=== PATIENT | male | born 1950 | race Caucasian/White ===

== ENCOUNTER 2017-03-14 15:11 | Emergency (ER) | payer MEDICARE, OTHER ==
[2017-03-14] MEDS ORDERED: KEFZOL 1 GM/50 ML PREMIX** 50 ML IV ONE ×2 (15:42→15:51)
--- NOTE | 2017-03-14 15:48 | ERPHSYRPT ---
- History of Present Illness Time Seen by Provider: 03/14/17 15:15 Source: patient Patient Subjective Stated Complaint: PT REPORTS WAS HANGING A BOARD WHEN IT FELL -REPORTS LAC TO RIGHT EAR-DENIES LOC-DENIES NUMBNESS OR TINLGING Triage Nursing Assessment: PT ALERT-ANSWERING QUESTIONS CORRECTLY-PUPILS RESPONSIVE-LAC NOTED TO RIGHT EAR WITH BLEEDING CONTROLLED NOTCHER Physician History: PATIENT WITH HISTORY OF TYPE 2 DIABETES, CORONARY ARTERY DISEASE STATES WHILE HANGING WALL BOARD, A 2X4 WOODED BOARD FELL STRUCK HIS RIGHT EAR SUSTAINING A THROUGH AND THROUGH LACERATIONS OF THE RIGHT EAR. DENIES ASSOCIATED HEAD, NECK OR BACK INJURY. Severity: mild ENT Location: ear (R) Prearrival Treatment: no prearrival treatment Modifying Factors: Improves With: nothing Associated Symptoms: ear pain (R) Allergies/Adverse Reactions: No Known Drug Allergies Allergy (Verified 03/14/17 15:22) Home Medications: Aspirin 81 gm Chew [Baby Aspirin 81 mg Chew] 81 mg PO DAILY 03/14/17 [ History] Carvedilol 3.125 mg [Coreg 3.125 MG] 3.125 mg PO DAILY 03/14/17 [History] Duloxetine HCl [Cymbalta] 60 mg PO DAILY 03/14/17 [History] Escitalopram Oxalate [Lexapro] 20 mg PO DAILY 03/14/17 [History] Esomeprazole Magnesium [Nexium] 40 mg PO DAILY 03/14/17 [History] Ezetimibe 10 mg [Zetia 10 MG] 10 mg PO HS 03/14/17 [History] Fe Fumarate/Vit C/B12-If/FA [Ferocon Capsule] 1 each PO BID 03/14/17 [History] Fenofibrate 40 mg PO DAILY 03/14/17 [History] Insulin Aspart [NovoLOG Insulin] 0 unit SQ UD 03/14/17 [History] Insulin Glargine [Lantus Insulin] 0 unit SQ UD 03/14/17 [History] Tamsulosin HCl 0.4 mg [Flomax 0.4 MG] 0.4 mg PO DAILY 03/14/17 [History] Thyroid,Pork [Gantt Thyroid] 240 mg PO DAILY 03/14/17 [History] Hx Tetanus, Diphtheria Vaccination/Date Given: Yes (2012) Hx Influenza Vaccination/Date Given: Yes Hx Pneumococcal Vaccination/Date Given: Yes Immunizations Up to Date: Yes - Review of Systems Constitutional: No Fever, No Chills Eyes: No Symptoms Ears, Nose, & Throat: Ear Pain, Other (LACERATION,) Respiratory: No Cough, No Dyspnea Cardiac: No Symptoms, No Chest Pain, No Edema, No Syncope Abdominal/Gastrointestinal: No Abdominal Pain, No Nausea, No Vomiting, No Diarrhea Genitourinary Symptoms: No Dysuria Musculoskeletal: No Back Pain, No Neck Pain Skin: No Rash Neurological: No Dizziness, No Focal Weakness, No Sensory Changes Psychological: No Symptoms Endocrine: No Symptoms All Other Systems: Reviewed and Negative - Past Medical History Pertinent Past Medical History: Yes Neurological History: No Pertinent History Cardiac History: Myocardial Infarction (AR), Other Respiratory History: COPD Endocrine Medical History: Diabetes Type II, Hypothyroidism Musculoskeletal History: Arthritis, Other GI Medical History: GERD, Gallbladder Disease, Other Psycho-Social History: Depression Other Medical History: NEUROPATHY. PULMONARY HTN - Past Surgical History Past Surgical History: Yes Neuro Surgical History: No Pertinent History Cardiac: CABG, Cardiac Catheterization, Other Respiratory: Chest Surgery Gastrointestinal: Cholecystectomy Genitourinary: No Pertinent History Musculoskeletal: Orthopedic Surgery Male Surgical History: No Pertinent History Other Surgical History: HEART SAC REPAIR AFTER TRAUMA TO CHEST. CARPAL TUNNEL. BACK. ROTATOR CUFF. HAND. BACK STIMULATOR - Social History Smoking Status: Never smoker How long have you smoked: 40 YEARS Exposure to second hand smoke: No Drug Use: none Patient Lives Alone: No - Nursing Vital Signs Nursing Vital Signs: Initial Vital Signs Pulse Rate 76 Respiratory Rate 16 Blood Pressure [] 136/69 Pain Intensity 2 - Physical Exam General Appearance: no apparent distress, alert, other (TENDERNESS LEFT TEMPORAL SCALP ANTERIOR TO RIGHT AURICLE) Eye Exam: bilateral eye: PERRL, EOMI Ear Exam: right ear: auricle normal, canal normal, TM normal, other (OVER THE POSTERIOR ASPECT OF RIGHT AURICLE A 6CM JAGGED LACERATION THROUGHT THE CARTILAGE ACROSS THE HANSEL, ANTIHELIX EXTENDS INTO THE LOBULE, ) Nasal Exam: normal inspection Throat Exam: pharynx normal, moist mucus membranes, No tonsillar exudate Neck Exam: normal inspection, non-tender, supple Cardiovascular/Respiratory Exam: chest non-tender, normal breath sounds, regular rate/rhythm Abdominal Exam: non-tender, soft Neurologic Exam: alert, oriented x 3, sensation nml, No motor deficits Skin Exam: normal color, warm, dry SpO2 Interpretation: normal SpO2: 98 Oxygen Delivery: Room Air - CT Exams Head CT Interpretation: Tele-radiologist Report, No/Intracranial Hemorrhag Ordered Tests: Medication Summary Discontinued Medications Generic Name Dose Route Start Last Admin Trade Name Robert PRN Reason Stop Dose Admin Fentanyl Citrate 50 mcg 03/14/17 18:04 03/14/17 18:10 Sublimaze 100 Mcg/2 Ml IV 03/14/17 18:05 50 mcg STAT ONE Administration Fentanyl Citrate Confirm 03/14/17 18:07 Sublimaze 100 Mcg/2 Ml Administered 03/14/17 18:08 Dose 100 mcg .ROUTE .STK-MED ONE Fentanyl Citrate 100 mcg 03/14/17 20:32 03/14/17 20:39 Sublimaze 100 Mcg/2 Ml IV 03/14/17 20:33 100 mcg STAT ONE Administration Fentanyl Citrate Confirm 03/14/17 20:36 Sublimaze 100 Mcg/2 Ml Administered 03/14/17 20:37 Dose 100 mcg .ROUTE .STK-MED ONE Cefazolin Sodium/Dextrose 50 mls @ 100 mls/hr 03/14/17 15:42 03/14/17 15:55 Kefzol 1 Gm/50 Ml Premix IV 03/14/17 16:11 100 mls/hr STAT ONE Administration Sodium Chloride 1,000 mls @ 50 mls/hr 03/14/17 15:45 03/14/17 20:39 Sodium Chloride 0.9% 1000 Ml IV 04/13/17 15:44 50 mls/hr .Q20H RAVINDER Administration Cefazolin Sodium/Dextrose Confirm 03/14/17 15:51 Kefzol 1 Gm/50 Ml Premix Administered 03/14/17 15:52 Dose 50 mls @ ud IV .STK-MED ONE Sodium Chloride Confirm 03/14/17 15:50 Sodium Chloride 0.9% 1000 Ml Administered 03/14/17 15:51 Dose 1,000 mls @ ud .ROUTE .STK-MED ONE Sodium Chloride Confirm 03/14/17 20:38 Sodium Chloride 0.9% 1000 Ml Administered 03/14/17 20:39 Dose 1,000 mls @ ud .ROUTE .STK-MED ONE Ondansetron HCl 4 mg 03/14/17 18:04 03/14/17 18:10 Zofran 4 Mg/2 Ml Vial IV 03/14/17 18:05 4 mg STAT ONE Administration Ondansetron HCl Confirm 03/14/17 18:07 Zofran 4 Mg/2 Ml Vial Administered 03/14/17 18:08 Dose 4 mg .ROUTE .STK-MED ONE Lab/Rad Data: Laboratory Result Diagrams 03/14/17 15:50 03/14/17 15:50 Laboratory Results 03/14/17 03/14/17 03/14/17 Range/Units 15:50 15:50 15:50 WBC 7.6 (4.0-10.5) K/mm3 RBC 4.51 (4.1-5.6) M/mm3 Hgb 12.7 (12.5-18.0) gm/dl Hct 39.6 L (42-50) % MCV 87.8 (78-100) fl MCH 28.2 (26-32) pg MCHC 32.1 (32-36) g/dl RDW 13.9 (11.5-14.0) % Plt Count 247 (150-450) K/mm3 MPV 9.7 H (6-9.5) fl Gran % 74.7 H (36.0-66.0) % Lymphocytes % 16.9 L (24.0-44.0) % Monocytes % 6.2 (0.0-12.0) % Eosinophils % 1.8 (0.00-5.0) % Basophils % 0.4 (0.0-0.4) % Basophils # 0.03 (0-0.4) INR 1.06 (0.8-3.0) Sodium 139 (136-145) mEq/L Potassium 4.4 (3.5-5.1) mEq/L Chloride 103 (98-107) mEq/L Carbon Dioxide 31.2 (21-32) mEq/L Anion Gap 8.8 (5-15) MEQ/L BUN 23 H (9-20) mg/dL Creatinine 1.37 H (0.55-1.30) mg/dl Estimated GFR 55 ML/MIN Glucose 211 H (70-110) MG/DL Calcium 9.3 (8.5-10.1) mg/dL - Progress Progress Note: 03/14/17 15:56 PATIENT ADMINISTERED IV NORMAL SALINE 50ML/HR, ANCEF 1GM IVPB, TETNUS UP TO DATE Discussed with : Other (DISCUSSED WITH TRAUMA SURGEON DR KOENIG AT 1628 ACCEPTS TRANSFER TO [facility]IA [facility]) - Departure Time of Disposition: 20:25 Departure Disposition: Transfer Clinical Impression: COMPLEX RIGHT AURICLE LACERATIONS, SCALP CONTUSION Condition: Stable Critical Care Time: No Referrals: EILEEN MILLER [Primary Care Provider] - Instructions: Care for a Laceration After Repair
[2017-03-14] MEDS ORDERED: Sodium Chloride 0.9% 1000 ML 1,000 ML ONE ×2 (15:50→20:38)
[2017-03-14] MEDS: Sodium Chloride 0.9% 1000 ML 1,000 ML IV SCH ×2 (15:55→20:39)
[2017-03-14 15:57] LABS: BASOPHIL % 0.4 % (0.0-0.4); Eosinophil % 1.8 % (0.00-5.0); Granulocytes % 74.7 % (36.0-66.0); Lymphocytes % 16.9 % (24.0-44.0); Mean Cell Volume 87.8 fl (78-100); Mean Corpuscular Hemoglobin 28.2 pg (26-32); Mean Platelet Volume 9.7 fl (6-9.5); Monocytes % 6.2 % (0.0-12.0); Platelet Count 247 K/mm3 (150-450); Red Blood Count 4.51 M/mm3 (4.1-5.6); Red Cell Distribution Width 13.9 % (11.5-14.0); White Blood Count 7.6 K/mm3 (4.0-10.5)
[2017-03-14 16:28] LABS: INR 1.06 (0.8-3.0); PROTIME 11.8 SECONDS (8.83-12.87)
[2017-03-14 16:31] LABS: ANION GAP 8.8 MEQ/L (5-15); Carbon Dioxide 31.2 mEq/L (21-32); Potassium 4.4 mEq/L (3.5-5.1)
[2017-03-14] MEDS ORDERED: SUBLIMAZE 100 MCG/2 ML IV ONE ×2 (18:04→20:32)
[2017-03-14] MEDS ORDERED: Zofran 4 MG/2 ML VIAL IV ONE (18:04)
[2017-03-14] MEDS ORDERED: Zofran 4 MG/2 ML VIAL ONE (18:07)
[2017-03-14] MEDS ORDERED: SUBLIMAZE 100 MCG/2 ML ONE ×2 (18:07→20:36)
[2017-03-14 20:27] VITALS: BP 136/69; PULSE 76
--- NOTE | 2017-03-15 08:45 | XRAY ---
Indication: Right-sided head trauma. Multiple contiguous axial images obtained through the head without contrast. Comparison: November 04, 2014. Again normal appearing brain parenchyma, ventricles, and bony calvarium. Visualized paranasal sinuses and mastoid air cells are pneumatized and clear. Incidental soft tissue injury/laceration to the right external ear. Impression: 1. Again no acute intracranial abnormalities. 2. New right external ear soft tissue injury/laceration. Comment: Preliminary interpretation was made by [facility]. No discrepancy. CTDI 48.25
[2017-03-20 01:11] VITALS: O2SAT 98
== END 2017-03-14 20:50 | disposition short-term general hospital (02) ==
LOC: ED 15:11
DX: S01.311A Laceration without foreign body of right ear, initial encounter (principal); S00.03XA Contusion of scalp, initial encounter; E11.9 Type 2 diabetes mellitus without complications; I25.10 Atherosclerotic heart disease of native coronary artery without angina pectoris; W20.8XXA Other cause of strike by thrown, projected or falling object, initial encounter; Z79.899 Other long term (current) drug therapy
CPT/HCPCS: 36000; 36415; 70450; 80048; 85025; 85610; 87040; 96360; 96361; 96365; 96374; 96375; 96376; 99285; J0690; J2405; J3010

== ENCOUNTER 2018-02-08 10:57 | Emergency (ER) | payer MEDICARE, OTHER ==
[2018-02-08] MEDS ORDERED: Sodium Chloride 0.9% 1000 ML 1,000 ML IV STA (11:08)
[2018-02-08 11:19] LABS: Lactic Acid 3.2 (0.4-2.0)
[2018-02-08 11:20] LABS: VBG BASE EXCESS 2.6 (-2.0-2.0); VBG CARBOXYHEMOGLOBIN 0.5 % T HGB (0.0-6.9); VBG HCO3- 28.8 meq/L (22-28); VBG HEMOGLOBIN 10.4; VBG O2 SATURATION 35.3 (95-100); VBG pH 7.36 (7.32-7.42)
[2018-02-08 11:21] LABS: VBG POTASSIUM 6.2 (3.5-5.1)
[2018-02-08 11:22] LABS: BASOPHIL % 0.2 % (0.0-0.4); Basophil (Absolute #) 0.02 (0-0.4); Eosinophil % 1.1 % (0.00-5.0); Eosinophil (Absolute #) 0.11 (0-0.5); Granulocyte Absolute (ANC) 8.23 (1.4-6.9); Granulocytes % 80.7 % (36.0-66.0); Hematocrit 32.3 % (42-50); Hemoglobin 10.1 gm/dl (12.5-18.0); Lymphocyte (Absolute #) 1.31 (1.0-4.6); Lymphocytes % 12.8 % (24.0-44.0); Mean Cell Volume 88.3 fl (78-100); Mean Corpuscular Hemoglobin 27.5 pg (26-32); Mean Corpuscular Hgb Concent. 31.3 g/dl (32-36); Mean Platelet Volume 10.2 fl (6-9.5); Monocyte (Absolute #) 0.53 (0.0-1.3); Monocytes % 5.2 % (0.0-12.0); Platelet Count 283 K/mm3 (150-450); Red Blood Count 3.66 M/mm3 (4.1-5.6); Red Cell Distribution Width 13.9 % (11.5-14.0); White Blood Count 10.2 K/mm3 (4.0-10.5)
[2018-02-08] MEDS ORDERED: Sodium Chloride 0.9% 1000 ML 1,000 ML ONE (11:25)
--- NOTE | 2018-02-08 11:35 | XRAY ---
Indication: Dizziness. Comparison: October 13, 2015. Portable chest unchanged again demonstrating left base fibrosis/scarring, left hemidiaphragm elevation, and CABG surgery. No focal infiltrate, consolidation, or large effusion. Heart is not enlarged. Bony thorax intact again with mild degenerative changes. Impression: Stable nonacute chest with chronic features.
[2018-02-08 11:37] LABS: ALBUMIN 3.5 g/dL (3.5-5.0); ALKALINE PHOSPHATASE 92 U/L (38-126); ANION GAP 16.3 MEQ/L (5-15); BLOOD UREA NITROGEN 24 mg/dL (9-20); CHLORIDE 101 mmol/L (98-107); Calcium 9.1 mg/dL (8.4-10.2); Carbon Dioxide 27 mmol/L (22-30); Creatinine 1 1.11 mg/dL (0.66-1.25); Glucose 408 mg/dL (74-106); LIPASE 64 U/L (23-300); SGOT/AST 28 U/L (17-59); SGPT/ALT 22 U/L (0-50); SODIUM 138 mmol/L (137-145); Total Protein 5.8 g/dL (6.3-8.2)
[2018-02-08 11:44] LABS: INR 1.16 (0.8-3.0)
[2018-02-08 11:46] LABS: PTT 31.1 SECONDS (24.1-36.1)
[2018-02-08 11:53] LABS: Potassium 6.3 mmol/L (3.5-5.1)
[2018-02-08 12:05] LABS: ABO TYPING A
[2018-02-08 12:06] LABS: Antibody Screen NEGATIVE (NEGATIVE); RH TYPING POSITIVE
--- NOTE | 2018-02-08 12:47 | ERPHSYRPT ---
- History of Present Illness Time Seen by Provider: 02/08/18 11:00 Source: patient, family () Patient Subjective Stated Complaint: states having dizziness today after getting out of bed this am. denies any pain at present time Triage Nursing Assessment: to room per w/c. skin pale, cool and clammy to touch. denies any pain. denies n/v/d. denies any recent fever. Physician History: CC: dizziness Hx: 67 y/o patient of Dr Jocelyn Tena. He reports dizziness this AM, profound where he feels like he is going to pass out. Gets cold and clammy. He has had some right hip/back/abd pain since yesterday, worse while driving to the hospital this AM. No fever, chills, cough, chest pain, vomiting, or diarrhea. He gets cold and clammy when up. Better with lying flat. No blood in stool or urine. No hx of this in the past. Increased tamulosin to BID 3 month ago. He tried to run his bulldozer this AM but felt too poorly so rested and then came to ER. Timing/Duration: today Severity: severe Allergies/Adverse Reactions: No Known Drug Allergies Allergy (Verified 03/14/17 15:22) Home Medications: Aspirin 81 gm Chew [Baby Aspirin 81 mg Chew] 81 mg PO DAILY 03/14/17 [ History] Carvedilol 3.125 mg [Coreg 3.125 MG] 3.125 mg PO DAILY 03/14/17 [History] Duloxetine HCl [Cymbalta] 60 mg PO DAILY 03/14/17 [History] Escitalopram Oxalate [Lexapro] 20 mg PO DAILY 03/14/17 [History] Esomeprazole Magnesium [Nexium] 40 mg PO DAILY 03/14/17 [History] Ezetimibe 10 mg [Zetia 10 MG] 10 mg PO HS 03/14/17 [History] Fenofibrate 40 mg PO DAILY 03/14/17 [History] Ferrous Fum/Vit C/B12-If/Folic [Ferocon Capsule] 1 each PO BID 03/14/17 [History ] Tamsulosin HCl 0.4 mg [Flomax 0.4 MG] 0.4 mg PO DAILY 03/14/17 [History] Thyroid,Pork [[place] Thyroid] 240 mg PO DAILY 03/14/17 [History] Ergocalciferol (Vitamin D2) [Vitamin D2] 50,000 unit PO Q7D 02/08/18 [History] Insulin Glargine,Hum.rec.anlog [Sudheer Kwong] 58 unit SQ DAILY 02/08/18 [ History] Metformin HCl 500 mg [Glucophage 500 MG] 500 mg PO BIDWM 02/08/18 [History ] Ranitidine HCl [Zantac] 150 mg PO BID 02/08/18 [History] Rosuvastatin Calcium [Crestor] 20 mg PO DAILY 02/08/18 [History] Hx Tetanus, Diphtheria Vaccination/Date Given: Yes Hx Influenza Vaccination/Date Given: Yes Hx Pneumococcal Vaccination/Date Given: Yes - Review of Systems Constitutional: Malaise, Weakness (general), No Fever, No Chills Eyes: No Vision Changes Ears, Nose, & Throat: No Symptoms Respiratory: No Cough, No Dyspnea Cardiac: No Chest Pain, No Edema, No Palpitations, No Syncope Abdominal/Gastrointestinal: No Abdominal Pain, No Nausea, No Vomiting, No Diarrhea Genitourinary Symptoms: Flank Pain (right lower), No Dysuria, No Hematuria Skin: No Rash Neurological: Dizziness, No Focal Weakness, No Headache All Other Systems: Reviewed and Negative - Past Medical History Pertinent Past Medical History: Yes Neurological History: No Pertinent History Cardiac History: Myocardial Infarction ([place]), Other Respiratory History: COPD Endocrine Medical History: Diabetes Type II, Hypothyroidism Musculoskeletal History: Arthritis, Other GI Medical History: GERD, Gallbladder Disease, Other Psycho-Social History: Depression Other Medical History: NEUROPATHY. PULMONARY HTN - Past Surgical History Past Surgical History: Yes Neuro Surgical History: No Pertinent History Cardiac: CABG, Cardiac Catheterization, Other Respiratory: Chest Surgery Gastrointestinal: Cholecystectomy Genitourinary: No Pertinent History Musculoskeletal: Orthopedic Surgery Male Surgical History: No Pertinent History Other Surgical History: HEART SAC REPAIR AFTER TRAUMA TO CHEST. CARPAL TUNNEL. BACK. ROTATOR CUFF. HAND. BACK STIMULATOR - Social History Smoking Status: Former smoker How long have you smoked: 40 YEARS Exposure to second hand smoke: No Drug Use: none Patient Lives Alone: No - Nursing Vital Signs Nursing Vital Signs: Initial Vital Signs Pulse Rate 104 H 02/08/18 10:59 Respiratory Rate 22 02/08/18 10:59 Blood Pressure 111/72 02/08/18 10:59 O2 Sat by Pulse Oximetry 97 02/08/18 10:59 Pain Scale Pain Intensity 0 - Physical Exam General Appearance: alert, other (pale, cool, clammy skin on arrival) Eye Exam: PERRL/EOMI Ears, Nose, Throat Exam: normal ENT inspection, moist mucous membranes Neck Exam: normal inspection, non-tender, supple, No meningismus Respiratory Exam: normal breath sounds, lungs clear Cardiovascular Exam: regular rate/rhythm, No murmur, No friction rub, No gallop Gastrointestinal/Abdomen Exam: soft, No tenderness, No distention, No mass, No guarding Male Genitalia Exam: normal genitalia Back Exam: normal inspection Extremity Exam: pedal edema (trace bilateral) Neurologic Exam: alert, oriented x 3, cooperative, sensation nml, No motor deficits Skin Exam: warm, dry, diaphoresis, pale, No rash SpO2 Interpretation: normal SpO2: 96 Oxygen Delivery: Room Air - Course Nursing assessment & vital signs reviewed: Yes EKG Interpreted by Me: RATE ([id number]), Sinus Rhythm, Right Bundle Branch Block ( unchanged from prior) - Radiology Exams cxr X-ray Interpretation: Teleradiologist Report (stable non acute chest with chronic features) - CT Exams abd/pelvis CT Interpretation: Negative (acute intrabdominal process. right subcutaneous induration (corresponds to place pt injects insulin, no redness, warmth, or swelling on direct examination).) Ordered Tests: Active Orders 24 hr Category Date Time Status Accucheck STAT Care 02/08/18 13:39 Active Clean Catch Urine Specimen STAT Care 02/08/18 11:08 Active EKG-ER Only STAT Care 02/08/18 11:08 Active IV Insertion STAT Care 02/08/18 11:08 Active IV Insertion-2nd Peripheral STAT Care 02/08/18 11:10 Active NPO (ED) STAT Care 02/08/18 11:08 Active Rectal Temperature STAT Care 02/08/18 11:10 Active ABDOMEN AND PELVIS W CONTRAST [CT] Stat Exams 02/08/18 12:23 Taken CHEST 1 VIEW (PORTABLE) Stat Exams 02/08/18 11:09 Completed CBC W DIFF Stat Lab 02/08/18 11:10 Completed CMP Stat Lab 02/08/18 11:10 Completed LIPASE Stat Lab 02/08/18 11:10 Completed Lactic Acid Stat Lab 02/08/18 11:13 Completed Lactic Acid Stat Lab 02/08/18 13:45 Completed Occult Blood,Stool Other Stat Lab 02/08/18 11:15 Completed PROTIME WITH INR Stat Lab 02/08/18 11:20 Completed PTT Stat Lab 02/08/18 11:20 Completed TROPONIN Q3H Lab 02/08/18 11:10 Completed TROPONIN Q3H Lab 02/08/18 14:40 Received TROPONIN Q3H Lab 02/08/18 17:15 Ordered TROPONIN Q3H Lab 02/08/18 20:15 Ordered TROPONIN Q3H Lab 02/08/18 23:15 Ordered UA W/ MICROSCOPIC Stat Lab 02/08/18 13:30 Completed VENOUS BLOOD GAS Stat Lab 02/08/18 11:13 Completed VENOUS BLOOD GAS Stat Lab 02/08/18 13:45 Completed Medication Summary Generic Name Dose Route Start Last Admin Trade Name Freq PRN Reason Stop Dose Admin Sodium Chloride 1,000 mls @ 100 mls/hr 02/08/18 13:45 02/08/18 13:48 Sodium Chloride 0.9% 1000 Ml IV 03/10/18 13:44 100 mls/hr .Q10H RAVINDER Administration Discontinued Medications Generic Name Dose Route Start Last Admin Trade Name Freq PRN Reason Stop Dose Admin Sodium Chloride 1,000 mls @ 999 mls/hr 02/08/18 11:08 02/08/18 11:26 Sodium Chloride 0.9% 1000 Ml IV 02/08/18 12:08 999 mls/hr .Q1H1M STA Administration Sodium Chloride Confirm 02/08/18 11:25 Sodium Chloride 0.9% 1000 Ml Administered 02/08/18 11:26 Dose 1,000 mls @ ud .ROUTE .STK-MED ONE Insulin Aspart 15 unit 02/08/18 13:39 02/08/18 14:20 Novolog Insulin SQ 02/08/18 13:40 Not Given STAT ONE Insulin Aspart 10 unit 02/08/18 13:42 02/08/18 13:48 Novolog Insulin SQ 02/08/18 13:43 10 unit STAT ONE Administration Insulin Aspart Confirm 02/08/18 13:46 Novolog Insulin Administered 02/08/18 13:47 Dose 10 unit .ROUTE .STK-MED ONE Lab/Rad Data: Laboratory Result Diagrams 02/08/18 11:10 02/08/18 11:10 Laboratory Results 02/08/18 02/08/18 02/08/18 Range/Units 13:45 13:45 13:30 WBC (4.0-10.5) K/mm3 RBC (4.1-5.6) M/mm3 Hgb (12.5-18.0) gm/dl Hct (42-50) % MCV (78-100) fl MCH (26-32) pg MCHC (32-36) g/dl RDW (11.5-14.0) % Plt Count (150-450) K/mm3 MPV (6-9.5) fl Gran % (36.0-66.0) % Lymphocytes % (24.0-44.0) % Monocytes % (0.0-12.0) % Eosinophils % (0.00-5.0) % Basophils % (0.0-0.4) % Basophils # (0-0.4) INR (0.8-3.0) APTT (24.1-36.1) SECONDS VBG pH 7.44 H (7.32-7.42) VBG pCO2 at Pat Temp 44 (42-55) mm/Hg VBG pO2 at Pat Temp 75 H (25-40) mm/Hg VBG HCO3 29.9 H* (22-28) meq/L VBG O2 Sat (Ana Cristina) 92.8 L (95-100) VBG Base Excess 5.2 H (-2.0-2.0) VBG Hemoglobin 9.2 VBG Carboxyhemoglobin 0.0 (0.0-6.9) % T HGB POC Potassium 5.5 H (3.5-5.1) Sodium (137-145) mmol/L Potassium (3.5-5.1) mmol/L Chloride (98-107) mmol/L Carbon Dioxide (22-30) mmol/L Anion Gap (5-15) MEQ/L BUN (9-20) mg/dL Creatinine (0.66-1.25) mg/dL Estimated GFR ML/MIN Glucose (74-106) mg/dL Lactic Acid 1.0 (0.4-2.0) Calcium (8.4-10.2) mg/dL Total Bilirubin (0.2-1.3) mg/dL AST (17-59) U/L ALT (0-50) U/L Alkaline Phosphatase (38-126) U/L Troponin I (0.000-0.034) ng/mL Serum Total Protein (6.3-8.2) g/dL Albumin (3.5-5.0) g/dL Lipase (23-300) U/L Ur Collection Type CLEAN CATCH Urine Color YELLOW (YELLOW) Urine Appearance CLEAR (CLEAR) Urine pH 7.0 (5-6) Ur Specific [place] 1.010 (1.005-1.025) Urine Protein NEGATIVE (Negative) Urine Ketones NEGATIVE (NEGATIVE) Urine Blood TRACE LYSED (0-5) Ish/ul Urine Nitrite NEGATIVE (NEGATIVE) Urine Bilirubin NEGATIVE (NEGATIVE) Urine Urobilinogen NORMAL (0-1) mg/dL Ur Leukocyte Esterase NEGATIVE (NEGATIVE) Urine Microscopic RBC 2-5 (0-2) /HPF Urine Bacteria FEW (NEGATIVE) /HPF Hyaline Casts 0-2 (0-2) /LPF Urine Mucus SLIGHT (NEGATIVE) /HPF Urine Culture Reflexed NO (NO) Urine Glucose 1000 (NEGATIVE) mg/dL Stool Occult Blood (Negative) Specimen Received 02/08/18 1330 ABO Group Rh Factor Antibody Screen (NEGATIVE) 02/08/18 02/08/18 02/08/18 Range/Units 11:20 11:15 11:13 WBC (4.0-10.5) K/mm3 RBC (4.1-5.6) M/mm3 Hgb (12.5-18.0) gm/dl Hct (42-50) % MCV (78-100) fl MCH (26-32) pg MCHC (32-36) g/dl RDW (11.5-14.0) % Plt Count (150-450) K/mm3 MPV (6-9.5) fl Gran % (36.0-66.0) % Lymphocytes % (24.0-44.0) % Monocytes % (0.0-12.0) % Eosinophils % (0.00-5.0) % Basophils % (0.0-0.4) % Basophils # (0-0.4) INR 1.16 (0.8-3.0) APTT 31.1 (24.1-36.1) SECONDS VBG pH 7.36 (7.32-7.42) VBG pCO2 at Pat Temp 51 (42-55) mm/Hg VBG pO2 at Pat Temp 20 L (25-40) mm/Hg VBG HCO3 28.8 H (22-28) meq/L VBG O2 Sat (Ana Cristina) 35.3 L (95-100) VBG Base Excess 2.6 H (-2.0-2.0) VBG Hemoglobin 10.4 VBG Carboxyhemoglobin 0.5 (0.0-6.9) % T HGB POC Potassium 6.2 H* (3.5-5.1) Sodium (137-145) mmol/L Potassium (3.5-5.1) mmol/L Chloride (98-107) mmol/L Carbon Dioxide (22-30) mmol/L Anion Gap (5-15) MEQ/L BUN (9-20) mg/dL Creatinine (0.66-1.25) mg/dL Estimated GFR ML/MIN Glucose (74-106) mg/dL Lactic Acid (0.4-2.0) Calcium (8.4-10.2) mg/dL Total Bilirubin (0.2-1.3) mg/dL AST (17-59) U/L ALT (0-50) U/L Alkaline Phosphatase (38-126) U/L Troponin I (0.000-0.034) ng/mL Serum Total Protein (6.3-8.2) g/dL Albumin (3.5-5.0) g/dL Lipase (23-300) U/L Ur Collection Type Urine Color (YELLOW) Urine Appearance (CLEAR) Urine pH (5-6) Ur Specific [place] (1.005-1.025) Urine Protein (Negative) Urine Ketones (NEGATIVE) Urine Blood (0-5) Ish/ul Urine Nitrite (NEGATIVE) Urine Bilirubin (NEGATIVE) Urine Urobilinogen (0-1) mg/dL Ur Leukocyte Esterase (NEGATIVE) Urine Microscopic RBC (0-2) /HPF Urine Bacteria (NEGATIVE) /HPF Hyaline Casts (0-2) /LPF Urine Mucus (NEGATIVE) /HPF Urine Culture Reflexed (NO) Urine Glucose (NEGATIVE) mg/dL Stool Occult Blood NEGATIVE (Negative) Specimen Received ABO Group Rh Factor Antibody Screen (NEGATIVE) 02/08/18 02/08/18 02/08/18 Range/Units 11:13 11:10 11:10 WBC (4.0-10.5) K/mm3 RBC (4.1-5.6) M/mm3 Hgb (12.5-18.0) gm/dl Hct (42-50) % MCV (78-100) fl MCH (26-32) pg MCHC (32-36) g/dl RDW (11.5-14.0) % Plt Count (150-450) K/mm3 MPV (6-9.5) fl Gran % (36.0-66.0) % Lymphocytes % (24.0-44.0) % Monocytes % (0.0-12.0) % Eosinophils % (0.00-5.0) % Basophils % (0.0-0.4) % Basophils # (0-0.4) INR (0.8-3.0) APTT (24.1-36.1) SECONDS VBG pH (7.32-7.42) VBG pCO2 at Pat Temp (42-55) mm/Hg VBG pO2 at Pat Temp (25-40) mm/Hg VBG HCO3 (22-28) meq/L VBG O2 Sat (Ana Cristina) (95-100) VBG Base Excess (-2.0-2.0) VBG Hemoglobin VBG Carboxyhemoglobin (0.0-6.9) % T HGB POC Potassium (3.5-5.1) Sodium (137-145) mmol/L Potassium (3.5-5.1) mmol/L Chloride (98-107) mmol/L Carbon Dioxide (22-30) mmol/L Anion Gap (5-15) MEQ/L BUN (9-20) mg/dL Creatinine (0.66-1.25) mg/dL Estimated GFR ML/MIN Glucose (74-106) mg/dL Lactic Acid 3.2 H (0.4-2.0) Calcium (8.4-10.2) mg/dL Total Bilirubin (0.2-1.3) mg/dL AST (17-59) U/L ALT (0-50) U/L Alkaline Phosphatase (38-126) U/L Troponin I < 0.012 (0.000-0.034) ng/mL Serum Total Protein (6.3-8.2) g/dL Albumin (3.5-5.0) g/dL Lipase (23-300) U/L Ur Collection Type Urine Color (YELLOW) Urine Appearance (CLEAR) Urine pH (5-6) Ur Specific [place] (1.005-1.025) Urine Protein (Negative) Urine Ketones (NEGATIVE) Urine Blood (0-5) Ish/ul Urine Nitrite (NEGATIVE) Urine Bilirubin (NEGATIVE) Urine Urobilinogen (0-1) mg/dL Ur Leukocyte Esterase (NEGATIVE) Urine Microscopic RBC (0-2) /HPF Urine Bacteria (NEGATIVE) /HPF Hyaline Casts (0-2) /LPF Urine Mucus (NEGATIVE) /HPF Urine Culture Reflexed (NO) Urine Glucose (NEGATIVE) mg/dL Stool Occult Blood (Negative) Specimen Received ABO Group A Rh Factor POSITIVE Antibody Screen NEGATIVE (NEGATIVE) 02/08/18 02/08/18 Range/Units 11:10 11:10 WBC 10.2 (4.0-10.5) K/mm3 RBC 3.66 L (4.1-5.6) M/mm3 Hgb 10.1 L (12.5-18.0) gm/dl Hct 32.3 L (42-50) % MCV 88.3 (78-100) fl MCH 27.5 (26-32) pg MCHC 31.3 L (32-36) g/dl RDW 13.9 (11.5-14.0) % Plt Count 283 (150-450) K/mm3 MPV 10.2 H (6-9.5) fl Gran % 80.7 H (36.0-66.0) % Lymphocytes % 12.8 L (24.0-44.0) % Monocytes % 5.2 (0.0-12.0) % Eosinophils % 1.1 (0.00-5.0) % Basophils % 0.2 (0.0-0.4) % Basophils # 0.02 (0-0.4) INR (0.8-3.0) APTT (24.1-36.1) SECONDS VBG pH (7.32-7.42) VBG pCO2 at Pat Temp (42-55) mm/Hg VBG pO2 at Pat Temp (25-40) mm/Hg VBG HCO3 (22-28) meq/L VBG O2 Sat (Ana Cristina) (95-100) VBG Base Excess (-2.0-2.0) VBG Hemoglobin VBG Carboxyhemoglobin (0.0-6.9) % T HGB POC Potassium (3.5-5.1) Sodium 138 (137-145) mmol/L Potassium 6.3 H* (3.5-5.1) mmol/L Chloride 101 (98-107) mmol/L Carbon Dioxide 27 (22-30) mmol/L Anion Gap 16.3 H (5-15) MEQ/L BUN 24 H (9-20) mg/dL Creatinine 1.11 (0.66-1.25) mg/dL Estimated GFR > 60 ML/MIN Glucose 408 H (74-106) mg/dL Lactic Acid (0.4-2.0) Calcium 9.1 (8.4-10.2) mg/dL Total Bilirubin 0.30 (0.2-1.3) mg/dL AST 28 (17-59) U/L ALT 22 (0-50) U/L Alkaline Phosphatase 92 (38-126) U/L Troponin I (0.000-0.034) ng/mL Serum Total Protein 5.8 L (6.3-8.2) g/dL Albumin 3.5 (3.5-5.0) g/dL Lipase 64 (23-300) U/L Ur Collection Type Urine Color (YELLOW) Urine Appearance (CLEAR) Urine pH (5-6) Ur Specific [place] (1.005-1.025) Urine Protein (Negative) Urine Ketones (NEGATIVE) Urine Blood (0-5) Ish/ul Urine Nitrite (NEGATIVE) Urine Bilirubin (NEGATIVE) Urine Urobilinogen (0-1) mg/dL Ur Leukocyte Esterase (NEGATIVE) Urine Microscopic RBC (0-2) /HPF Urine Bacteria (NEGATIVE) /HPF Hyaline Casts (0-2) /LPF Urine Mucus (NEGATIVE) /HPF Urine Culture Reflexed (NO) Urine Glucose (NEGATIVE) mg/dL Stool Occult Blood (Negative) Specimen Received ABO Group Rh Factor Antibody Screen (NEGATIVE) - Progress Progress Note: 02/08/18 12:54 He appears better at rest after IVF bolus. K is high. Will get Ct to rule out AAA or aneurysm. 02/08/18 13:[address] Das who advised call Dr Tena. Spoke to Dr Jocelyn Tena who advised call [facility] hospitalist or nephrology. Paged Dr Mata. Pt requests [facility] as that is his hospital preference. He remains orthostatic in sense he feels dizzy immediately upon sitting up and begins to feel like he will pass out. 02/08/18 15:[address] Mata who will admit at [facility]. Pt agrees for [facility]. Spoke to Dr oJrge L Berger thru [facility] transfer center and he accepts to [facility] ER. REpeat lactic and K improved. Counseled pt/family regarding: lab results, diagnosis, need for follow-up, rad results - Departure Time of Disposition: 15:10 Departure Disposition: Transfer ([facility]) Clinical Impression: Dizziness, Orthostasis, Pre-syncope, Hyperglycemia Condition: Fair Critical Care Time: No Referrals: EILEEN TENA [Primary Care Provider] -
[2018-02-08] MEDS ORDERED: NovoLOG Insulin SQ ONE ×2 (13:39→13:42)
[2018-02-08 13:40] LABS: Appearance CLEAR (CLEAR)
[2018-02-08 13:42] LABS: Bilirubin NEGATIVE (NEGATIVE); Glucose 1000 mg/dL (NEGATIVE); Ketones NEGATIVE (NEGATIVE); Leukocyte Esterase NEGATIVE (NEGATIVE); Nitrite NEGATIVE (NEGATIVE); Protein,Urine Dip NEGATIVE (Negative); Urobilinogen NORMAL mg/dL (0-1)
[2018-02-08 13:43] LABS: Bacteria FEW /HPF (NEGATIVE); Blood TRACE LYSED Ery/ul (0-5); Hyaline Casts 0-2 /LPF (0-2); Mucus SLIGHT /HPF (NEGATIVE)
[2018-02-08] MEDS ORDERED: Sodium Chloride 0.9% 1000 ML 1,000 ML IV SCH (13:45)
[2018-02-08] MEDS ORDERED: NovoLOG Insulin ONE (13:46)
[2018-02-08 14:20] LABS: VBG BASE EXCESS 5.2 (-2.0-2.0); VBG HCO3- 29.9 meq/L (22-28); VBG HEMOGLOBIN 9.2; VBG O2 SATURATION 92.8 (95-100); VBG POTASSIUM 5.5 (3.5-5.1); VBG pH 7.44 (7.32-7.42)
[2018-02-08 15:43] VITALS: BP 101/59; PULSE 93; O2SAT 98
--- NOTE | 2018-02-10 00:39 | XRAY ---
Indication: Orthostatic dizziness. Right flank and right hip pain. Multiple contiguous axial images obtained through the abdomen and pelvis using 80 cc Isovue 370 contrast only. Comparison: None Lung bases demonstrates bibasilar atelectasis/scarring, left greater than right. No infiltrate or effusion. Heart is not enlarged. Small hiatal hernia. Previous gastric bypass surgery. Noncontrasted stomach and bowel loops appear nonobstructed. Normal appendix. No free fluid/air. 7.1 cm right renal parapelvic cyst and 1.2 cm left mid renal cortical cyst. No solid renal mass or hydronephrosis. Other incidental findings include 2.3 cm left adrenal adenoma, mild fatty liver, cholecystectomy, and scattered hepatic/splenic calcified granulomas. Remaining liver, pancreas, spleen, adrenal glands, kidneys, ureters, and bladder appear unremarkable. Mild aortoiliac calcifications. No AAA or pathologic retroperitoneal lymphadenopathy. Osseous structures intact with mild degenerative changes throughout the spine and L3-L4/L4-L5 posterior fusion surgery. Small fatty inguinal hernias, right greater than left. Right mid abdomen demonstrates anterior cutaneous/subcutaneous induration without underlying mass or fluid collection. Impression: 1. Small hiatal hernia, bilateral renal cysts, left adrenal adenoma, fatty liver, hepatic/splenic calcified granulomas, fatty inguinal hernias. 2. No acute intra-abdominal/pelvic abnormalities. 3. Right abdomen cutaneous/subcutaneous induration. Rule out underlying infection. CT DI 34.24
== END 2018-02-08 15:51 | disposition short-term general hospital (02) ==
LOC: ED 10:57
DX: R42 Dizziness and giddiness (principal); I95.1 Orthostatic hypotension; R55 Syncope and collapse; E87.5 Hyperkalemia; E11.65 Type 2 diabetes mellitus with hyperglycemia; Z79.82 Long term (current) use of aspirin; Z79.899 Other long term (current) drug therapy; I45.10 Unspecified right bundle-branch block; Z79.4 Long term (current) use of insulin
CPT/HCPCS: 36000; 36415; 71045; 74177; 80053; 81000; 82272; 82805; 82962; 83605; 83690; 84484; 85025; 85610; 85730; 86850; 86900; 86901; 93005; 96360; 96361; 96372; 99285; A9270-GY

== ENCOUNTER 2018-10-15 06:54 | Day surgery (SDC) | payer MEDICARE, OTHER ==
[~2018-10-15 06:54] MED LIST: Lactated Ringers 1,000 ML IV ONE
[2018-10-15] MEDS ORDERED: DIPRIVAN 200 MG/20 ML IV ONE (06:55)
[2018-10-15] MEDS ORDERED: Ak-Dilate OPHTHALMIC*** 1.065 ML, Cyclogyl 1% OPHTH SOL 5 ML 1.065 ML, GATIFLOXACIN 0.5... OP ONE ×4 (07:30)
[2018-10-15] MEDS ORDERED: Lactated Ringers 1,000 ML IV SCH (07:30)
[2018-10-15] MEDS ORDERED: TETRACAINE 0.5% STERI-UNIT SOL OP ONE ×2 (07:30)
[2018-10-15] MEDS ORDERED: BSS 500 ML, Fortaz/Tazicef 1 GM** 0.2 G IO ONE ×2 (09:00)
[2018-10-15] MEDS ORDERED: ACETAZOLAMIDE 250 MG TABLET PO ONE (09:00)
[2018-10-15] MEDS ORDERED: LIDOCAINE HCL 1% AMPUL 5 ML IJ ONE (09:00)
[2018-10-15] MEDS ORDERED: Zofran 4 MG/2 ML VIAL IV PRN (09:00)
[2018-10-15] MEDS ORDERED: Epinephrine Preservative Free 1 MG/ML INTRAOP ONE (09:00)
[2018-10-15] MEDS ORDERED: BETADINE 5% OPHTHALMIC 30 ML OP ONE (09:00)
[2018-10-15 10:13] VITALS: BP 131/82; PULSE 67; O2SAT 131
--- NOTE | 2018-10-15 15:10 | OP ---
DATE/TIME OF OPERATION: 10/15/2018 0907 TIME DICTATED: 1208 PREOPERATIVE DIAGNOSIS: Senile cataract of right eye. POSTOPERATIVE DIAGNOSIS: Senile cataract of right eye. SURGEON: Ty Ac MD MINT WAFER DEPOSITOR: None. OPERATION: Cataract extraction of right eye with an intraocular lens implant. STANDARD COMPLEX ___X___ ANESTHESIA: MAC. ___X___ Monitored anesthesia care in combination with topical and intra-cameral anesthesia (because of the established specific risk of reflux, arrhythmias, or an anxiety attack associated with ocular manipulation as well as difficulty of the asthma educator to manage such potentially catastrophic events while simultaneously attempting to complete the surgical procedure, it was deemed necessary for the patient's safety to have an anesthesiologist or a nurse airbrush artist photography present during the procedure whenever possible. The anesthesiologist or the nurse airbrush artist photography was utilized to monitor and regulate the intravenous sedation of the patient, so the patient was cooperative, relaxed, and comfortable). Topical anesthesia using Tetracaine eye drops together with intra cameral anesthesia using Lidocaine 1% MPF. The nurse was utilized to monitor the patient. ANESTHESIA PROVIDER: Delvis Cook CRNA. COMPLICATIONS: None. BLOOD LOSS: None. INDICATIONS: The patient is undergoing cataract surgery in the hopes of eliminating the visual complaints and difficulty. PROCEDURE: After arriving at the facility's outpatient surgery area, an IV was started; the patient was given 5 mg of p.o. Versed. (If an anesthesia provider was not monitoring the patient) The patient was then given topical anesthetic Tetracaine eye drops. A cotton pellet was soaked into a solution of a combination of Zymaxid 0.5%, Micah-Synephrine 2.5% and Ocufen (other drops might have been substituted referenced in the patient's record). The pellet was inserted by the RN into the lower conjunctival cul-de-sac with a sterile forceps and left for 20 minutes. The pellet was then removed by the RN with a sterile forceps before taking the patient to the operating room. The preoperative area nurse identified the patient and marked the correct eye to be operated on. I identified the correct eye to be operated on and marked it appropriately in the outpatient surgery area. The patient was then taken into the operating room. Tetracaine eye drops were installed again in the correct eye. The eyelids and the lashes and the lid margins were scrubbed with Betadine solution. One drop of the diluted Betadine solution was placed in the conjunctival cul-de-sac for 45 seconds and then was irrigated. A drop of Tetracaine Gel was placed in the conjunctival cul-de-sac. The patient's forehead was taped to secure it during the procedure. The patient was monitored. The patient was then draped in the usual way for this procedure. An eye speculum was used to separate the eyelids. The eye was then fixated and a temporal 2.5 mm incision was made in the clear cornea temporally at the limbus. Through the incision, 0.25 cc of 1% non-preserved lidocaine was injected into the anterior chamber for intracameral anesthesia. The anterior chamber was then filled with viscoelastic. __X___ The pupil was small. I felt that it would be safer to mechanically dilate the pupil. A Malyugin ring was used at this point which dilated the pupil. That was removed at the end of the procedure prior to aspiration of the viscoelastic from the anterior chamber and posterior to the intraocular lens implant. The cataract had a great amount of cortical changes. That rendered seeing the anterior capsule difficult for a safe performance of an anterior capsulotomy. I injected an air bubble into the anterior chamber. I then injected 1 ML of vision blue solution into the anterior chamber. The vision blue solution was irrigated from the anterior chamber after 30 seconds. The anterior capsule was stained which facilitated performing the anterior capsulotomy safely. After that was completed, a cystotome was introduced into the anterior chamber and a round anterior capsulotomy was performed. The capsule was removed by a forceps. Hydrodissection was next carried utilizing a 25-gauge cannula and balanced salt solution to delineate the cortical material from the capsule and the nucleus from the cortical material. The nucleus was rotated freely into the capsular bag with no difficulty. The phaco tip of the Isidro [employer] Phacoemulsifier was introduced into the anterior chamber and two grooves were made into the nucleus 90 degrees apart. Using two spatulas resulted into the nucleus being fractured into four quadrants. The phaco tip was then used to remove each quadrant of the nucleus. Viscoelastic was used during this process to protect the corneal endothelium. Once the entire nucleus was removed, the phaco tip then was removed and the irrigation tip was introduced into the eye and the cortex was removed. The posterior capsule was polished. It was noticed that there was a tear into the posterior capsule with few vitreous strands into the pupil plan. An anterior vitrectomy was performed. A 21.50 diopter, SN60WF, posterior chamber lens implant, was inspected and found to be grossly normal. The implant was inserted into the implant injector cartridge; Viscoelastic again was introduced into the anterior chamber, which filled the capsular bag. The implant injector's cartridge tip was placed at the limbal wound and the posterior chamber implant was released into the capsular bag and rotated appropriately. The implant was found to be into the capsular bag and it was centered. 0.2 ml of Tri-Moxi was introduced via 27 gauge cannula into the vitreous cavity through the ciliary processes. Viscoelastic was aspirated from the anterior chamber and posterior to the intraocular lens implant from the capsular bag using the irrigating tip. The anterior chamber was irrigated and filled with 5 cc antibiotic solution (500 cc of BSS plus 2 ml of Fortaz 100 mg/ml) ( if patient was not allergic to the medication). The lips of the corneal incision were hydrated using BSS solution. The anterior chamber was checked and found to be water tight. __X___ One drop each of antibiotic, steroid and NSAID drops (refer to chart for drops used) were placed in the conjunctival cul-de-sac of the operated eye. Patient tolerated the procedure quite well and left the operating room in satisfactory condition. DISCHARGE SUMMARY: The patient was released in stable condition. The patient and those with the patient were given an instruction sheet as of how to care for the eye after surgery as well as counseling on any abnormal laboratory studies by the postoperative RN. The patient was also given an appointment card for follow-up in the office and is to call immediately for any difficulties including but not limited to pain in the eye, decreased vision, discharge from the eye, headache and or fever. DISCHARGE DIAGNOSIS: Pseudophakia of right eye.
== END 2018-10-15 10:44 | disposition home or self-care (01) ==
LOC: SDC 06:54
PROVIDERS: ATTEND Ophthalmology
DX: H25.9 Unspecified age-related cataract (principal); I51.9 Heart disease, unspecified; E11.9 Type 2 diabetes mellitus without complications; Z79.4 Long term (current) use of insulin; N40.0 Benign prostatic hyperplasia without lower urinary tract symptoms; I10 Essential (primary) hypertension; F41.9 Anxiety disorder, unspecified
CPT/HCPCS: 66982; 82962; 94250; C1780; J0171; J2704; A9270-GY

== ENCOUNTER 2018-12-10 07:44 | Day surgery (SDC) | payer MEDICARE, OTHER ==
[~2018-12-10 07:44] MED LIST changes: +Ak-Dilate OPHTHALMIC*** 1.065 ML, Cyclogyl 1% OPHTH SOL 5 ML 1.065 ML, GATIFLOXACIN 0.5... OP ONE; +Lactated Ringers 1,000 ML IV SCH; +TETRACAINE 0.5% STERI-UNIT SOL OP ONE
[2018-12-10] MEDS ORDERED: DIPRIVAN 200 MG/20 ML IV ONE (07:45)
[2018-12-10] MEDS ORDERED: ACETAZOLAMIDE 250 MG TABLET PO ONE (09:00)
[2018-12-10] MEDS ORDERED: Zofran 4 MG/2 ML VIAL IV PRN (09:00)
[2018-12-10 11:06] VITALS: BP 135/71; PULSE 71
[2018-12-10 11:11] VITALS: O2SAT 95
[2018-12-10] MEDS ORDERED: BSS 500 ML, Fortaz/Tazicef 1 GM** 0.2 G IO ONE ×2 (16:00)
[2018-12-10] MEDS ORDERED: Epinephrine Preservative Free 1 MG/ML INTRAOP ONE (16:00)
[2018-12-10] MEDS ORDERED: BETADINE 5% OPHTHALMIC 30 ML OP ONE (16:00)
[2018-12-10] MEDS ORDERED: LIDOCAINE HCL 1% AMPUL 5 ML IJ ONE (16:00)
--- NOTE | 2018-12-11 08:50 | OP ---
DATE/TIME OF OPERATION: 12/10/2018 0959 TIME DICTATED: 1241 PREOPERATIVE DIAGNOSIS: Senile cataract of left eye. POSTOPERATIVE DIAGNOSIS: Senile cataract of left eye. SURGEON: Ty Ac MD PEGGER: None. OPERATION: Cataract extraction of left eye with an intraocular lens implant. STANDARD COMPLEX ___X___ ANESTHESIA: MAC. ___X___ Monitored anesthesia care in combination with topical and intra-cameral anesthesia (because of the established specific risk of reflux, arrhythmias, or an anxiety attack associated with ocular manipulation as well as difficulty of the template reproduction technician to manage such potentially catastrophic events while simultaneously attempting to complete the surgical procedure, it was deemed necessary for the patient's safety to have an anesthesiologist or a nurse interior wall assembler present during the procedure whenever possible. The anesthesiologist or the nurse interior wall assembler was utilized to monitor and regulate the intravenous sedation of the patient, so the patient was cooperative, relaxed, and comfortable). Topical anesthesia using Tetracaine eye drops together with intra cameral anesthesia using Lidocaine 1% MPF. The nurse was utilized to monitor the patient. ANESTHESIA PROVIDER: Delvis Cook CRNA. COMPLICATIONS: None. BLOOD LOSS: None. INDICATIONS: The patient is undergoing cataract surgery in the hopes of eliminating the visual complaints and difficulty. PROCEDURE: After arriving at the facility's outpatient surgery area, an IV was started; the patient was given 5 mg of p.o. Versed. (If an anesthesia provider was not monitoring the patient) The patient was then given topical anesthetic Tetracaine eye drops. A cotton pellet was soaked into a solution of a combination of Zymaxid 0.5%, Micah-Synephrine 2.5% and Ocufen (other drops might have been substituted referenced in the patient's record). The pellet was inserted by the RN into the lower conjunctival cul-de-sac with a sterile forceps and left for 20 minutes. The pellet was then removed by the RN with a sterile forceps before taking the patient to the operating room. The preoperative area nurse identified the patient and marked the correct eye to be operated on. I identified the correct eye to be operated on and marked it appropriately in the outpatient surgery area. The patient was then taken into the operating room. Tetracaine eye drops were installed again in the correct eye. The eyelids and the lashes and the lid margins were scrubbed with Betadine solution. One drop of the diluted Betadine solution was placed in the conjunctival cul-de-sac for 45 seconds and then was irrigated. A drop of Tetracaine Gel was placed in the conjunctival cul-de-sac. The patient's forehead was taped to secure it during the procedure. The patient was monitored. The patient was then draped in the usual way for this procedure. An eye speculum was used to separate the eyelids. The eye was then fixated and a temporal 2.5 mm incision was made in the clear cornea temporally at the limbus. Through the incision, 0.25 cc of 1% non-preserved lidocaine was injected into the anterior chamber for intracameral anesthesia. The anterior chamber was then filled with viscoelastic. __X___ The pupil was small. I felt that it would be safer to mechanically dilate the pupil. A Malyugin ring was used at this point which dilated the pupil. That was removed at the end of the procedure prior to aspiration of the viscoelastic from the anterior chamber and posterior to the intraocular lens implant. The cataract had a great amount of cortical changes. That rendered seeing the anterior capsule difficult for a safe performance of an anterior capsulotomy. I injected an air bubble into the anterior chamber. I then injected 1 ML of vision blue solution into the anterior chamber. The vision blue solution was irrigated from the anterior chamber after 30 seconds. The anterior capsule was stained which facilitated performing the anterior capsulotomy safely. After that was completed, a cystotome was introduced into the anterior chamber and a round anterior capsulotomy was performed. The capsule was removed by a forceps. Hydrodissection was next carried utilizing a 25-gauge cannula and balanced salt solution to delineate the cortical material from the capsule and the nucleus from the cortical material. The nucleus was rotated freely into the capsular bag with no difficulty. The phaco tip of the Isidro [employer] Phacoemulsifier was introduced into the anterior chamber and two grooves were made into the nucleus 90 degrees apart. Using two spatulas resulted into the nucleus being fractured into four quadrants. The phaco tip was then used to remove each quadrant of the nucleus. Viscoelastic was used during this process to protect the corneal endothelium. Once the entire nucleus was removed, the phaco tip then was removed and the irrigation tip was introduced into the eye and the cortex was removed. The posterior capsule was polished. It was noticed that there was a tear into the posterior capsule with few vitreous strands into the pupil plan. An anterior vitrectomy was performed. A 22.00 diopter, SN60WF, posterior chamber lens implant, was inspected and found to be grossly normal. The implant was inserted into the implant injector cartridge; Viscoelastic again was introduced into the anterior chamber, which filled the capsular bag. The implant injector's cartridge tip was placed at the limbal wound and the posterior chamber implant was released into the capsular bag and rotated appropriately. The implant was found to be into the capsular bag and it was centered. __X__ 0.2 ml of Tri-Moxi was introduced via 27 gauge cannula into the vitreous cavity through the ciliary processes. Viscoelastic was aspirated from the anterior chamber and posterior to the intraocular lens implant from the capsular bag using the irrigating tip. The anterior chamber was irrigated and filled with 5 cc antibiotic solution (500 cc of BSS plus 2 ml of Fortaz 100 mg/ml) ( if patient was not allergic to the medication). The lips of the corneal incision were hydrated using BSS solution. The anterior chamber was checked and found to be water tight. One drop each of antibiotic, steroid and NSAID drops (refer to chart for drops used) were placed in the conjunctival cul-de-sac of the operated eye. Patient tolerated the procedure quite well and left the operating room in satisfactory condition. DISCHARGE SUMMARY: The patient was released in stable condition. The patient and those with the patient were given an instruction sheet as of how to care for the eye after surgery as well as counseling on any abnormal laboratory studies by the postoperative RN. The patient was also given an appointment card for follow-up in the office and is to call immediately for any difficulties including but not limited to pain in the eye, decreased vision, discharge from the eye, headache and or fever. DISCHARGE DIAGNOSIS: Pseudophakia of left eye.
== END 2018-12-10 11:17 | disposition home or self-care (01) ==
LOC: SDC 07:44
PROVIDERS: ATTEND Ophthalmology
DX: H25.812 Combined forms of age-related cataract, left eye (principal); E11.9 Type 2 diabetes mellitus without complications; I10 Essential (primary) hypertension; E78.00 Pure hypercholesterolemia, unspecified; Z79.84 Long term (current) use of oral hypoglycemic drugs; Z79.899 Other long term (current) drug therapy
CPT/HCPCS: 66982; 82962; C1780; J2704; A9270-GY

== ENCOUNTER 2021-07-25 08:26 | Day surgery (SDC) | payer MEDICARE, OTHER ==
--- NOTE | 2021-07-25 08:29 | HP ---
DATE OF SURGERY: 07/25/2021 HISTORY OF PRESENT ILLNESS: The patient is a 71 year-old with increased reflux, coughs after eating. He has history of bariatric surgery, Birgit-en-Y six years ago and a bleeding episode, no transfusions at that time. He has increased reflux recently. He is in need of upper endoscopy. PAST MEDICAL HISTORY: Diabetes. Heart disease. Lung disease. No history of blood transfusion in the past. PAST SURGICAL HISTORY: Bypass in the past. Cholecystectomy. Shoulder surgery. Three back surgeries in the past. Tonsillectomy/adenoidectomy. Trigger finger in the past. Heart catheterizations. Cataract. Endoscopy in the past. MEDICATIONS: Synthroid, Sertraline, gabapentin, pantoprazole, ezetimibe, rosuvastatin, Metformin, Apidra, bumetanide, Toujeo. ALLERGIES: NKDA. FAMILY HISTORY: Negative in regards to this problem. SOCIAL HISTORY: No smoking or alcohol abuse. REVIEW OF SYSTEMS: Fourteen systems reviewed pertinent for the multiple medical problems as mentioned above per preadmission assessment. PHYSICAL EXAMINATION: GENERAL: No acute distress. HEENT: Sclerae nonicteric. NECK: No JVD. CHEST: Equal excursion, nonlabored breathing. CVS: Regular rate and rhythm. ABDOMEN: Soft. No peritoneal signs. EXTREMITIES: No significant edema. NEURO: Alert, oriented, moving extremities symmetrically. PSYCH: Appropriate mood and affect. IMPRESSION: History of reflux, history of bariatric surgery in the past. He is in need of upper endoscopy. Risks and benefits explained in detail including but not limited to bleeding or infection, risk of bowel injury or perforation possibly requiring open procedure, risk of missed or nondiagnosis or inability to diagnose the etiology of his symptoms. General risk of anesthesia or sedation, but not limited to. He understands in regards to esophagus, his stomach pouch we may not be able to reach the distal part of his stomach. He understands that he may need follow up of his bariatric surgery if his symptoms persist and has similar problems to find specific etiology. Will proceed with EGD possible biopsy as an outpatient.
[2021-07-25] MEDS ORDERED: Lactated Ringers 1,000 ML IV ONE (08:47)
[2021-07-25] MEDS ORDERED: Lactated Ringers 1,000 ML IV SCH (09:00)
[2021-07-25] MEDS ORDERED: DIPRIVAN 200 MG/20 ML IV ONE (10:33)
[2021-07-25 11:35] VITALS: O2SAT 96
[2021-07-25 11:47] VITALS: BP 151/74; PULSE 62
--- NOTE | 2021-07-26 09:37 | OP ---
SURGERY DATE/TIME: 07/25/2021 1040 PREOPERATIVE DIAGNOSIS: Increased reflux, need for upper endoscopy. History of prior bariatric surgery. POSTOPERATIVE DIAGNOSIS: Fairly unremarkable gastroenteric anastomotic site in the esophagus. No signs of any active marginal ulcer. No signs of any significant erosive esophagitis at this time. PROCEDURES: 1) Cold biopsy of the stomach to evaluate for Helicobacter pylori. 2) Cold biopsy of esophagus to evaluate for eosinophilic esophagitis. SURGEON: Dr. Jace Steinberg. ANESTHESIA: MAC. ESTIMATED BLOOD LOSS: Minimal. INDICATIONS: As noted above. Risks and benefits explained in detail and not limited to and consent obtained. DESCRIPTION OF PROCEDURE AND FINDINGS: The patient is taken to the endoscopy room. MAC anesthesia introduced. After official time out and no disagreement with planned procedure, a bite block positioned. Video gastroscope easily passed down the esophagus. Gastroesophageal junction about 45 cm. Z-line was fairly crisp. No signs of any obvious erosions or masses in the gastroesophageal junction. The stomach pouch is fairly unremarkable. The scope was easily passed down the enteric limb to jejunum which was grossly unremarkable. The gastrojejunostomy junction area had no gross signs of any significant ulcers at this time. No signs of any ulcer disease. Given his symptom complaints, cold biopsies were taken of the stomach to evaluate for Helicobacter pylori. Gastroesophageal junction about 45 cm. Random cold biopsies were taken of the esophageal mucosa to evaluate for eosinophilic esophagitis to rule out other causes of her symptoms. The patient tolerated the procedure well. Findings discussed with the family out in the waiting area. If he continues to have symptoms, he may need to be re-evaluated by his bariatric surgeon if he has any other problems. I will see him back in the office in a couple of weeks.
== END 2021-07-25 11:50 | disposition home or self-care (01) ==
LOC: SDC 08:26
PROVIDERS: ATTEND Surgery
DX: K21.9 Gastro-esophageal reflux disease without esophagitis (principal); Z98.84 Bariatric surgery status; E11.9 Type 2 diabetes mellitus without complications; I51.9 Heart disease, unspecified; Z79.899 Other long term (current) drug therapy
CPT/HCPCS: 82947; 88305; 93005; 99100; J2704

== ENCOUNTER 2024-07-31 15:42 | Emergency (ER) | payer MEDICARE, OTHER ==
[2024-07-31 15:57] VITALS: BP 160/66; PULSE 67; RESP 18; TEMP 97.4; O2SAT 98
--- NOTE | 2024-07-31 16:42 | ERPHSYRPT ---
- History of Present Illness Time Seen by Provider: 07/31/24 15:53 Source: patient Exam Limitations: no limitations Patient Subjective Stated Complaint: pt here for laceration to right index finger while using a saw . Triage Nursing Assessment: pt walked in, resp easy, skin w/d/p. laceration to right index finger 1 cm in length, no active bleeding Physician History: 74 years old with history of diabetes mellitus, hypothyroidism, up-to-date with tetanus [id number] presented to the ER after he accidentally has right index finger laceration while working on his side at home. Patient reports mild dull aching pain with movements. There was bleeding initially but stopped with applying pressure. No distal numbness or weakness. 1.5 centimeter laceration right index finger lateral dorsal aspect oblique with no exposed tendon. No active spurting or oozing. Intact range of motion at metacarpophalangeal and interphalangeal joints. Distal neurovascular intact. Discussed with patient about laceration repair with suture versus Dermabond/Steri-Strip and he opted for Dermabond and Steri-Strip which is done. Placed in a aluminum premade splint. Recommended Tylenol ibuprofen as needed, laceration care and outpatient follow-up. Discussed signs symptoms of worsening needing return to ER which he seems understanding. Stable for discharge. Allergies/Adverse Reactions: No Known Drug Allergies Allergy (Verified 07/25/21 08:35) Home Medications: Escitalopram Oxalate [Lexapro] 20 mg PO DAILY 03/14/17 [History] Ezetimibe 10 mg [Zetia 10 MG] 10 mg PO HS 03/14/17 [History] Fenofibrate 48 mg PO DAILY 03/14/17 [History] Tamsulosin HCl 0.4 mg [Flomax 0.4 MG] 0.4 mg PO UD 03/14/17 [History] Metformin HCl 500 mg [Glucophage 500 MG] 500 mg PO BIDWM 02/08/18 [History] Insulin Glulisine [Apidra Solostar] 4 units SQ TIDWMEALS 10/09/18 [History] Insulin Glargine,Hum.rec.anlog [Toujeo Solostar] 12 unit SQ DAILY 08/24/20 [History] Ropinirole 2Mg [Requip 2Mg Tab] 1 mg PO BID 08/24/20 [History] Sertraline HCl 50 mg [Zoloft 50 mg Tablet] 50 mg PO DAILY 08/24/20 [History] Levothyroxine Sodium 150 Mcg [Synthroid 150 Mcg] 200 mcg PO DAILY 07/25/21 [History] Fludrocortisone Acetate [Florinef] 0.1 mg PO DAILY 07/31/24 [History] Hx Tetanus, Diphtheria Vaccination/Date Given: Yes (2022) Hx Influenza Vaccination/Date Given: No Hx Pneumococcal Vaccination/Date Given: Yes Immunizations Up to Date: Yes Travel Risk - International Travel Have you traveled outside of the country in past 3 weeks: No - Emerging Infectious Disease Are you exhibiting symptoms associated with any current EIDs: No - Review of Systems Constitutional: No Symptoms Respiratory: No Symptoms Cardiac: No Symptoms Musculoskeletal: Injury Skin: Skin Lesions Neurological: No Symptoms Hematologic/Lymphatic: No Symptoms - Past Medical History Pertinent Past Medical History: Yes Neurological History: Peripheral Neuropathy ENT History: Cataracts Cardiac History: Coronary Artery Disease, High Cholesterol Respiratory History: Other Endocrine Medical History: Diabetes Type II, Hypothyroidism, Other Musculoskeletal History: Osteoarthritis GI Medical History: GERD, Gallbladder Disease, Other History: No Pertinent History Psycho-Social History: Depression Male Reproductive Disorders: Prostate Problems Other Medical History: PULMONARY FIBROSIS - PER PATIENT 35% OF LUNG FUNCTION. BENIGN PROSTATIC HYPERTROPHY. HX OF CABG X 3, ROTATOR CUFF REPAIR BILATERALLY, 2 LUMBAR SURGERIES AND 1 CERVICAL WITH FUSIONS WITH HARDWARE. HX OF INJECTIONS LEFT HIP DUE TO OA. VACCINATED FOR COVID. PRIOR LEVEL OF FUNCTION USE OF CANE WITH PRN USE OF WALKER FOR LONG DISTANCES - Past Surgical History Past Surgical History: Yes Neuro Surgical History: No Pertinent History Cardiac: CABG, Cardiac Catheterization, Other Respiratory: Chest Surgery Gastrointestinal: Cholecystectomy Genitourinary: No Pertinent History Musculoskeletal: Orthopedic Surgery Male Surgical History: No Pertinent History Other Surgical History: HEART SAC REPAIR AFTER TRAUMA TO CHEST. CARPAL TUNNEL montse., bariatric rue and Y surgery. BACK times 3. ROTATOR CUFF montse. HAND montse, trigger finger repair May 2018, right eye cataract,. BACK STIMULATOR. 3- Bypass heart surgery 2009 - Social History Smoking Status: Former smoker How long have you smoked: 40 YEARS Exposure to second hand smoke: No Drug Use: none Patient Lives Alone: No - Social Determinants of Health Will the patient participate in the screening: Declined to provide - Nursing Vital Signs Nursing Vital Signs: Initial Vital Signs Temperature 97.4 F 07/31/24 15:56 Pulse Rate 67 07/31/24 15:56 Respiratory Rate 18 07/31/24 15:56 Blood Pressure 160/66 07/31/24 15:56 O2 Sat by Pulse Oximetry 98 07/31/24 15:56 Pain Scale Pain Intensity 3 - Physical Exam General Appearance: no apparent distress Eye Exam: PERRL/EOMI Neck Exam: normal inspection, full range of motion Respiratory Exam: normal breath sounds, lungs clear Cardiovascular Exam: regular rate/rhythm, normal heart sounds Extremity Exam: normal range of motion, lacerations (1.5 cm laceration right index finger proximal phalanx), tenderness Neurologic Exam: alert, oriented x 3, cooperative, supervisor weaving II-XII nml as tested Skin Exam: normal color SpO2 Interpretation: normal SpO2: 98 O2 Delivery: Room Air Procedures - Laceration/Wound Repair Right Finger Time of Procedure: 16:40 Wound Location: Right Wound Length (cm): 1.5 Wound's Depth, Shape: superficial, into muscle Wound Explored: clean Irrigated: Yes Hibiclens Prep: Yes Wound Repaired With: Steri-strips, Dermabond Sterile Dressing Applied?: Yes Splint Applied?: Yes Type of Splint Applied: Aluminum premade - Progress Progress: improved Progress Note: 07/31/24 16:41 74 years old with history of diabetes mellitus, hypothyroidism, up-to-date with tetanus [id number] presented to the ER after he accidentally has right index finger laceration while working on his side at home. Patient reports mild dull aching pain with movements. There was bleeding initially but stopped with applying pressure. No distal numbness or weakness. 1.5 centimeter laceration right index finger lateral dorsal aspect oblique with no exposed tendon. No active spurting or oozing. Intact range of motion at metacarpophalangeal and interphalangeal joints. Distal neurovascular intact. Discussed with patient about laceration repair with suture versus Dermabond /Steri-Strip and he opted for Dermabond and Steri-Strip which is done. Placed in a aluminum premade splint. It is a superficial cut, do not think needs imaging. Recommended Tylenol ibuprofen as needed, laceration care and outpatient follow-up. Discussed signs symptoms of worsening needing return to ER which he seems understanding. Stable for discharge. 07/31/24 16:41 Counseled pt/family regarding: diagnosis, need for follow-up Medical Desision Making - Risk of complications The pt has a mod risk of morbidity or mortality based on: Need for minor surgical intervention in patient with know risk factors - Departure Departure Disposition: Home Clinical Impression: Finger laceration Condition: Stable Critical Care Time: No Referrals: EILEEN MILLER [Primary Care Provider] - Follow up with PCP 1 day Instructions: Laceration Repair With Glue (DC) Additional Instructions: Take Tylenol as needed. Follow-up with primary care for reevaluation. Avoid exertional activities with right hand. Return to ER for increasing pain swelling redness, difficulty movements etc.
== END 2024-07-31 16:50 | disposition home or self-care (01) ==
LOC: ED 15:42
DX: S61.210A Laceration without foreign body of right index finger without damage to nail, initial encounter (principal); W27.0XXA Contact with workbench tool, initial encounter; E78.5 Hyperlipidemia, unspecified; E11.42 Type 2 diabetes mellitus with diabetic polyneuropathy; Z79.4 Long term (current) use of insulin; Z79.84 Long term (current) use of oral hypoglycemic drugs; Z79.899 Other long term (current) drug therapy
CPT/HCPCS: 12001; 99281